=== PATIENT | male | born 1990 | race Hispanic/Latino ===

== ENCOUNTER 2025-08-22 18:32 | Emergency (ER) | payer SELFPAY ==
[2025-08-22 19:53] LABS: #Basophils 0.03 10x3/uL (0.0-0.2); #Eosinophils Less than 0.03 10x3/uL (0.0-0.7); #Monocytes 0.71 10x3/uL (0.11-0.59); #Neutrophils 11.24 10x3/uL (1.40-6.50); %Basophils 0.2 % (0.0-1.0); %Eosinophils 0.1 % (0.0-10.0); %Lymphocytes 6.3 % (21.0-51.0); %Monocytes 5.5 % (0.0-10.0); %Neutrophils 87.6 % (42.0-75.0); Hematocrit 49.7 % (42.0-52.0); Hemoglobin 17.1 g/dL (14.0-18.0); Mean Corpuscular Hemoglobin 29.2 pg (27.0-31.0); Mean Corpuscular Volume 85.0 fL (78.0-98.0); Platelet Count 273 10x3/uL (130-400); Red Blood Cell (RBC) Count 5.85 mill/uL (4.70-6.10); White Blood Cell (WBC) Count 12.84 10x3/uL (4.8-10.8)
[2025-08-22 20:06] LABS: Bacteria/HPF None Seen HPF (None Seen); CAUTI Indications for Culture Pelvic or flank pain; Glucose, Urine (Dipstick) 70 mg/dL (Negative); Leukocyte 25 Leu/uL (Negative); Protein, Urine (Dipstick) 100 mg/dL (Neg-Trace); RBC/HPF 0-3 HPF (0-3); Specific Gravity, Urine 1.032 (1.002-1.036)
[2025-08-22 20:09] LABS: Urine Culture Reflex Yes Yes
[2025-08-22 20:12] LABS: ALT (SGPT) 45 U/L (Less than 45); AST (SGOT) 40 U/L (11-34); Albumin 4.1 g/dL (3.1-4.5); Alkaline Phosphatase 87 U/L (40-110); Anion Gap 14 mmol/L (10-20); BUN (Urea Nitrogen) 18 mg/dL (8.9-20.6); Bilirubin, Total 0.4 mg/dL (0.3-1.2); Calc. Creatinine Clearance 0 mL/min (70-130); Calcium 9.0 mg/dL (7.8-10.44); Carbon Dioxide 19 mmol/L (22-29); Chloride 104 mmol/L (98-107); Globulin 3.8 g/dL (2.4-3.5); Glucose 130 mg/dL (70-105); Lipase 19 U/L (8-78); Potassium 3.2 mmol/L (3.5-5.1); Sodium 134 mmol/L (136-145)
[2025-08-22] MEDS ORDERED: Ondansetron PF 4 MG/2 ML Vial ONE (22:06)
[2025-08-22] MEDS ORDERED: Ketorolac Tromethamine 30 MG (1 mL) VIAL ONE (22:06)
== END 2025-08-22 23:02 | disposition home or self-care (01) ==
LOC: ERS 18:32
DX: R19.7 Diarrhea, unspecified (principal); E87.6 Hypokalemia; R80.9 Proteinuria, unspecified
CPT/HCPCS: 36415; 80053; 81001; 83690; 85025; 87086; 93005; 96361; 96374; 96375; J1885; J2405